=== PATIENT | male | born 1995 | race Caucasian/White ===

== ENCOUNTER → 2016-08-28 | Outpatient (CLI) | payer BC ==
[~2016-08-28] MED LIST: CETI10CA PO; PRD20T PO
--- NOTE | 2016-08-31 09:37 | Diagnostic Imaging Report ---
PROCEDURE: CT right wrist without contrast. TECHNIQUE: Multiple contiguous axial images were obtained through the right wrist without the use of intravenous contrast. Sagittal and coronal reformations were then performed. DATE: August 28, 2016. INDICATION: 20-year-old male, right hand pain. Prior history of surgery. COMPARISON: Right wrist radiographs December 13, 2013. CT right wrist March 08, 2014. FINDINGS: There is a fixation screw within the scaphoid. The screw appears entirely intraosseous in location and is intact. There is complete osseous bridging across the previously noted fracture of the scaphoid on comparison radiograph of December 13, 2013. There is a very small osseous protuberance of the very proximal aspect of the scaphoid adjacent to the proximal aspect of the fixation screw perhaps best illustrated on sagittal image 60. This extends beyond the expected cortical margin of bone by roughly 0.6 mm. There is no evidence of avascular necrosis of the scaphoid. There is a small well-corticated ossification measuring approximately 2.4 x 2.2 x 3.2 mm in size adjacent to the distal lunate along its radial margin compatible with a chronic etiology. This is present on the comparison exam of March 08, 2014. This may potentially relate to the sequela of prior fracture or an accessory ossicle. There is no abnormal widening of the scapholunate or lunotriquetral intervals. There is a normal variant type II lunate facet. There does appear to be negative ulnar variance. There are no degenerative changes at the distal radial ulnar joint. The bone mineralization of the lunate is unremarkable. There is no identified acute fracture. There are limitations for assessment of the muscles and tendons on CT. No obvious abnormality of the muscles or tendons is identified. IMPRESSION: 1. Intact fixation screw within the scaphoid. Interval complete osseous bridging of the previously noted scaphoid fracture on comparison wrist radiographs of December 13, 2013. No evidence of avascular necrosis. Very minimal osseous protuberance adjacent to the proximal aspect of the fixation screw measuring 0.6 mm. 2. Small well-corticated ossification adjacent to the distal aspect of the radial margin of the lunate which is present previously and most likely relates to sequela of prior injury or accessory ossicle. 3. Apparent negative ulnar variance. Dictated by: Dictated on workstation # [id number]
== END ==
LOC: RAD 14:28
PROVIDERS: ATTEND Orthopaedic Surgery Hand Surgery
DX: M79.641 Pain in right hand (principal)
CPT/HCPCS: 73200

== ENCOUNTER 2017-01-04 20:54 | Outpatient (CLI) | payer BC, OTHER | END 2017-01-05 06:52 | disposition home or self-care (01) | LOC: SLEEP 20:54 | PROVIDERS: ATTEND Nurse Practitioner Family | DX: G47.10 Hypersomnia, unspecified (principal); R06.83 Snoring | CPT/HCPCS: 95811 ==

== ENCOUNTER 2017-06-24 16:57 | Emergency (ER) | payer OTHER ==
[~2017-06-24] VITALS: Ht 175.3 cm; Wt 106.6 kg
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
[2017-06-24] MEDS ORDERED: fentaNYL INJECTION 100 MCG/2 ML AMP IVP ONE ×3 (17:15→19:15)
[2017-06-24 17:17] LABS: HEMOGLOBIN 15.9 G/DL (13.3-17.7); MEAN PLATELET VOLUME 8.9 FL (7.4-10.4); RED BLOOD COUNT 5.68 10^6/uL (4.35-5.85); RED CELL DISTRIBUTION WIDTH 13.6 % (10.0-14.5); WHITE BLOOD COUNT 9.6 10^3/uL (4.3-11.0)
[2017-06-24] MEDS ORDERED: NS 100 ML (IVPB) BAG IV ONE (17:30)
[2017-06-24] MEDS ORDERED: IOHEXOL 350 MG/ML 100 ML (OMNIPAQUE 350) VIAL IV ONE (17:30)
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
[2017-06-24 17:38] LABS: ALANINE AMINOTRANSFERASE 52 U/L (0-55); ALBUMIN 4.3 GM/DL (3.2-4.5); ALKALINE PHOSPHATASE 57 U/L (40-136); BILIRUBIN,DIRECT 0.1 MG/DL (0.0-0.3); BILIRUBIN,INDIRECT 0.3 MG/DL; BILIRUBIN,TOTAL 0.4 MG/DL (0.1-1.0); BUN/CREATININE RATIO 14; CALCIUM 9.6 MG/DL (8.5-10.1); CARBON DIOXIDE 21 MMOL/L (21-32); CHLORIDE 102 MMOL/L (98-107); CREATININE SERUM 0.78 MG/DL (0.60-1.30); GFR ESTIMATED > 60; GLUCOSE 107 MG/DL (70-105); POTASSIUM 3.5 MMOL/L (3.6-5.0); SODIUM 138 MMOL/L (135-145); TOTAL PROTEIN 7.9 GM/DL (6.4-8.2)
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
[2017-06-24] MEDS ORDERED: HYDR-757 PO (18:03)
[2017-06-24 18:23] LABS: BILIRUBIN,URINE NEGATIVE (NEGATIVE); CLARITY,URINE CLEAR; COLOR,URINE YELLOW; GLUCOSE, URINE (UA) NEGATIVE (NEGATIVE); KETONES,URINE NEGATIVE (NEGATIVE); LEUKOCYTE ESTERASE ,URINE NEGATIVE (NEGATIVE); NITRITE,URINE NEGATIVE (NEGATIVE); PH,URINE 7 (5-9); PROTEIN,URINE 1+ (NEGATIVE); UROBILINOGEN,URINE NORMAL (NORMAL)
[2017-06-24 18:31] LABS: SQUAMOUS EPITHELIAL CELL,UR RARE /HPF
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
[2017-06-24 19:11] VITALS: BP 165/105
== END 2017-06-24 19:11 | disposition home or self-care (01) ==
LOC: EDUNIT# 16:57 → ER 16:58
DX: S06.0X9A Concussion with loss of consciousness of unspecified duration, initial encounter (principal); S16.1XXA Strain of muscle, fascia and tendon at neck level, initial encounter; S39.012A Strain of muscle, fascia and tendon of lower back, initial encounter; J45.909 Unspecified asthma, uncomplicated; V43.52XA Car driver injured in collision with other type car in traffic accident, initial encounter
CPT/HCPCS: 36415; 70450; 71045; 71260; 72125; 72131; 73030; 74177; 80048; 80076; 80320; 81000; 85027; 86850; 86900; 86901; 93041; 96374; 96376

== ENCOUNTER 2018-07-07 13:59 | Outpatient (RCR) | payer OTHER ==
[~2018-07-07 13:59] MED LIST changes: +HYDR-4226 PO
== END 2018-07-07 14:26 | disposition home or self-care (01) ==
PROVIDERS: ATTEND Nurse Practitioner
DX: M76.62 Achilles tendinitis, left leg (principal)

== ENCOUNTER → 2018-11-21 | Outpatient (CLI) | payer OTHER ==
[2018-11-21 10:26] LABS: BASOPHILS # (AUTO) 0.1 10^3/uL (0.0-0.1); BASOPHILS % (AUTO) 1 % (0-10); EOSINOPHILS # (AUTO) 0.2 10^3/uL (0.0-0.3); EOSINOPHILS % (AUTO) 2 % (0-10); HEMATOCRIT 42 % (40-54); HEMOGLOBIN 14.7 G/DL (13.3-17.7); LYMPHOCYTES % (AUTO) 39 % (12-44); MEAN CORPUSCULAR HEMOGLOBIN 28 PG (25-34); MEAN CORPUSCULAR HGB CONC 35 G/DL (32-36); MEAN CORPUSCULAR VOLUME 80 FL (80-99); MEAN PLATELET VOLUME 9.1 FL (7.4-10.4); MONOCYTES # (AUTO) 0.7 X 10^3 (0.0-1.0); MONOCYTES % (AUTO) 9 % (0-12); NEUTROPHILS # (AUTO) 3.7 X 10^3 (1.8-7.8); NEUTROPHILS % (AUTO) 49 % (42-75); PLATELET COUNT 221 10^3/uL (130-400); RED CELL DISTRIBUTION WIDTH 13.6 % (10.0-14.5); WHITE BLOOD COUNT 7.6 10^3/uL (4.3-11.0)
[2018-11-21 10:45] LABS: ALANINE AMINOTRANSFERASE 53 U/L (0-55); ALBUMIN 4.3 GM/DL (3.2-4.5); ALKALINE PHOSPHATASE 56 U/L (40-136); BILIRUBIN,TOTAL 0.5 MG/DL (0.1-1.0); BUN/CREATININE RATIO 16; CALCIUM 9.1 MG/DL (8.5-10.1); CARBON DIOXIDE 22 MMOL/L (21-32); CHLORIDE 105 MMOL/L (98-107); CHOLESTEROL 154 MG/DL (< 200); CREATININE SERUM 0.76 MG/DL (0.60-1.30); GFR ESTIMATED > 60; GLUCOSE 127 MG/DL (70-105); HDL CHOLESTEROL 28 MG/DL (40-60); POTASSIUM 3.9 MMOL/L (3.6-5.0); SODIUM 136 MMOL/L (135-145); TOTAL PROTEIN 7.2 GM/DL (6.4-8.2); TRIGLYCERIDES 157 MG/DL (<150); VLDL CHOLESTEROL 31 MG/DL (5-40)
== END ==
LOC: LAB 10:03
PROVIDERS: ATTEND Nurse Practitioner
DX: Z00.00 Encounter for general adult medical examination without abnormal findings (principal); J45.909 Unspecified asthma, uncomplicated; G47.33 Obstructive sleep apnea (adult) (pediatric)
CPT/HCPCS: 36415; 80053; 80061; 84443; 85025

== ENCOUNTER → 2019-05-29 | Outpatient (CLI) | payer OTHER ==
--- NOTE | 2019-05-29 13:23 | Diagnostic Imaging Report ---
INDICATION: Fall with pain in the left hip and back. TIME OF EXAM: 01:08 p.m. FINDINGS: Three views of lumbar spine were obtained. Curvature alignment is normal. Vertebral body heights and disc spaces are well-maintained. No fractures are seen. IMPRESSION: No acute bony abnormality is detected. Dictated by: Dictated on workstation # [id number]
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
== END ==
LOC: RAD 12:41
PROVIDERS: ATTEND Nurse Practitioner
DX: M54.5 Low back pain (principal); M25.552 Pain in left hip; W19.XXXA Unspecified fall, initial encounter; Y93.67 Activity, basketball
CPT/HCPCS: 72100

== ENCOUNTER → 2019-06-23 | Outpatient (CLI) | payer OTHER ==
[~2019-06-23] VITALS: Ht 175.3 cm; Wt 129.5 kg
[~2019-06-23] MED LIST changes: +GADOBUTROL 7.5 MMOL/7.5 ML (GADAVIST) VIAL IV ONE; +IOHEXOL 300 MG/ML 50 ML (OMNIPAQUE 300) VIAL IV ONE
--- NOTE | 2019-06-23 14:19 | Diagnostic Imaging Report ---
INDICATION: Left hip pain. FINDINGS: Patient was brought to the procedure room, placed on table in the supine position. Skin of the left hip was prepped and draped in the usual sterile fashion. A small amount of 1% lidocaine was utilized for local anesthesia. 20-gauge needle was advanced into the left hip and placed with its tip at the femoral head and neck junction laterally. A 15 mL solution of iodinated contrast, normal saline, and gadolinium was injected under fluoroscopic observation. Needle was withdrawn and hemostasis was obtained. Patient tolerated the procedure well and was sent to MRI in satisfactory condition. Total of 60 seconds of fluoroscopic time was utilized. IMPRESSION: Successful left hip injection of gadolinium contrast solution, using fluoroscopy. Dictated by: Dictated on workstation # [id number]
--- NOTE | 2019-06-23 16:02 | Diagnostic Imaging Report ---
EXAMINATION: Magnetic resonance imaging of the pelvis and left hip with intra-articular contrast. DATE: June 23, 2019. COMPARISON: Left hip arthrogram June 23, 2019. INDICATION: 23-year-old male, left hip pain. TECHNIQUE: Magnetic Resonance Imaging sequences were performed of the pelvis and left hip following the intra-articular administration of contrast. TENDONS AND MUSCLES: The gluteus millicent muscles and their origins and insertions are intact bilaterally. The tendons and muscles of the greater trochanter - gluteus minimus, piriformis and gluteus medius - are intact bilaterally. Both common hamstring attachments on the ischial tuberosities are intact and the extensor muscles of the thigh are intact. The visualized portions of the flexors and adductor muscles of the thigh and their attachments on the pelvis and hips are intact. Both iliopsoas and iliacus muscles are intact. The bilateral iliopsoas tendons are intact. HIPS AND SACROILIAC JOINTS: The contours of the femoral heads and acetabuli are smooth and symmetric. There is no identified left hip labral tear. There is no paralabral cyst. The articular cartilage appears grossly intact. There is no fluid-filled right hip labral tear. No pronounced joint space loss of the right hip. There is no right hip joint effusion. The sacroiliac joints are unremarkable. LUMBAR SPINE: The visible portions of the lumbar spine are unremarkable on limited assessment. BONE: The bones all have normal configuration. The bone marrow signal is within normal limits. Specifically, negative for fracture, osteomyelitis, osteonecrosis, or marrow replacing process. BURSAE AND SOFT TISSUES: The bursae and soft tissues surrounding the pelvis and hips are within normal limits. IMPRESSION: 1. Negative for labral tear. Unremarkable appearance of both hip joints. 2. Intact muscles and tendons. 3. No acute fracture, bone contusion or evidence of osteonecrosis. 4. Unremarkable MRI of the pelvis and left hip. Dictated by: Dictated on workstation # [id number]
== END ==
LOC: RAD 12:12
PROVIDERS: ATTEND Nurse Practitioner
DX: M24.152 Other articular cartilage disorders, left hip (principal); M25.552 Pain in left hip
CPT/HCPCS: 27093; 73525; 73722

== ENCOUNTER → 2019-10-11 | Outpatient (CLI) | payer OTHER ==
[~2019-10-11] MED LIST changes: -GADOBUTROL 7.5 MMOL/7.5 ML (GADAVIST) VIAL IV ONE; -IOHEXOL 300 MG/ML 50 ML (OMNIPAQUE 300) VIAL IV ONE
--- NOTE | 2019-10-11 09:47 | Diagnostic Imaging Report ---
PROCEDURE: MRI lumbar spine. TECHNIQUE: Multiplanar, multisequence MRI of the lumbar spine was performed without contrast. INDICATION: Chronic back pain. COMPARISON: There are no prior MRI examinations available for comparison. The plain film examination of the lumbar spine performed on 05/29/2019 failed to show any sign of an acute abnormality. FINDINGS: The T2 parasagittal images of this exam show the vertebral body heights and alignment to be generally within normal limits. The intervertebral spaces are fairly well-maintained although there is desiccation of the disc at L4-L5. Furthermore, at this level, there is a disc bulge eccentric to the right. The disc compresses the right ventral aspect of the thecal sac and narrows the AP diameter to 9.0 mm. There is also mild neuroforaminal narrowing bilaterally at this level. The remainder of the lumbar spine is unremarkable for spinal stenosis or nerve root encroachment. There is no abnormal signal arising from the cord or the vertebral bodies to indicate an acute abnormality. There is no sign of a paraspinal mass. IMPRESSION: 1. There is degenerative disc disease at L4-L5. There is borderline central stenosis at this level with mild narrowing of the neural foramen bilaterally. 2. The remainder of the lumbar spine is unremarkable for spinal stenosis or nerve root encroachment. 3. There is no sign of an acute bony abnormality or of a cord lesion. Dictated by: Dictated on workstation # [id number]
== END ==
LOC: RAD 08:33
PROVIDERS: ATTEND Nurse Practitioner
DX: M54.16 Radiculopathy, lumbar region (principal); M24.152 Other articular cartilage disorders, left hip; M48.061 Spinal stenosis, lumbar region without neurogenic claudication; M51.36 Other intervertebral disc degeneration, lumbar region
CPT/HCPCS: 72148

== ENCOUNTER 2020-01-29 08:49 | Emergency (ER) | payer OTHER ==
[~2020-01-29] VITALS: Ht 175.2 cm; Wt 129.7 kg
[2020-01-29] MEDS ORDERED: FAMOTIDINE 20MG/2ML IV (PEPCID) IV STA (08:54)
[2020-01-29] MEDS ORDERED: ANTACID SUSP 30 ML UDC (MYLANTA) PO ONE (09:00)
[2020-01-29] MEDS ORDERED: LIDOCAINE 2% VISCOUS 15 ML UDC PO ONE (09:00)
[2020-01-29] MEDS ORDERED: ASPIRIN 81 MG CHEW (CHILDREN'S ASA) PO ONE (09:00)
[2020-01-29 09:12] LABS: BASOPHILS % (AUTO) 1 % (0-10); EOSINOPHILS # (AUTO) 0.3 10^3/uL (0.0-0.3); EOSINOPHILS % (AUTO) 4 % (0-10); HEMATOCRIT 45 % (40-54); HEMOGLOBIN 16.1 G/DL (13.3-17.7); LYMPHOCYTES # (AUTO) 2.3 X 10^3 (1.0-4.0); LYMPHOCYTES % (AUTO) 33 % (12-44); MEAN CORPUSCULAR HEMOGLOBIN 28 PG (25-34); MEAN CORPUSCULAR HGB CONC 36 G/DL (32-36); MEAN CORPUSCULAR VOLUME 79 FL (80-99); MONOCYTES # (AUTO) 0.5 X 10^3 (0.0-1.0); MONOCYTES % (AUTO) 7 % (0-12); NEUTROPHILS # (AUTO) 3.9 X 10^3 (1.8-7.8); NEUTROPHILS % (AUTO) 56 % (42-75); PLATELET COUNT 237 10^3/uL (130-400); RED CELL DISTRIBUTION WIDTH 13.3 % (10.0-14.5); WHITE BLOOD COUNT 6.9 10^3/uL (4.3-11.0)
--- NOTE | 2020-01-29 09:18 | ED Chest Pain ---
General Stated Complaint: CHEST PAIN;ARM PAIN Source: patient Exam Limitations: no limitations (RUBY MCCLURE MED STUDENT) History of Present Illness Date Seen by Provider: Jan 29, 2020 Time Seen by Provider: 08:50 Initial Comments Aydin Tena is a 24 year old male seen today due to L sided chest and arm pain. He reports that he has had this pain intermittently for several months usually lasting for around 10 minutes and going away on its own, but today it has lasted more than an hour. It is not brought on by exertion or any other aggravating factor he is aware of, and he never takes any medication for it. The pain begins on the L side of his chest and radiates into his shoulder and at times around his side to his back. The pain is worsened by any movement of his L arm, and chest pain can be reproduced by palpation. Reports having some SOB with the pain, he has a history of asthma. Timing/Duration: 1 hour Severity/Quality: mild, stabbing Location: central, shoulder Radiation: shoulders Activities at Onset: none (RUBY MCCLURE STUDENT) Initial Comments Patient also endorses a history of anxiety. Patient has not tried anything for it. He has not had this worked up anywhere else yet. His pain is been going on intermittently for the past several months. (LUZ ELENA GRAVES) Allergies and Home Medications Allergies Coded Allergies: Cephalosporins (Unverified Allergy, Severe, RASH, 12/19/12) Skin sloughing Penicillins (Unverified Allergy, Intermediate, RASH, 12/19/12) Sulfa (Sulfonamide Antibiotics) (Verified Allergy, Intermediate, 06/15/14) Home Medications Cetirizine Hcl 10 Mg Capsule, 10 MG PO HS, (Reported) Hydrocodone/Acetaminophen 1 Each Tablet, 1 EACH PO Q4H Prescribed by: JOSE NAIK on 06/24/17 180 Omeprazole 20 Mg Capsule.dr, 20 MG PO BID Prescribed by: LUZ ELENA GRAVES on 01/29/20 1301 Ondansetron 4 Mg Tab.rapdis, 4 MG PO Q6H PRN for NAUSEA/VOMITING Prescribed by: LUZ ELENA GRAVES on 01/29/20 1301 Prednisone 20 Mg Tab, 40 MG PO DAILY Prescribed by: JOSE NAIK on 06/06/152040 Sucralfate 1 Gm Tablet, 1 GM PO QIDACHS Prescribed by: LUZ ELENA GRAVES on 01/29/20 1301 Patient Home Medication List Home Medication List Reviewed: Yes (LUZ ELENA GRAVES) Review of Systems Review of Systems Constitutional: No chills, No dizziness, No fever EENTM: No Nose Congestion, No Throat Pain Respiratory: Denies Cough; Shortness of Air Cardiovascular: Chest Pain; Denies Irregular Heart Rate; Lightheadedness, Palpitations (occasional fluttering sensation) Gastrointestinal: Denies Abdominal Pain; Nausea; Denies Vomiting Psychiatric/Neurological: Numbness (bilateral hands), Tingling (bilateral hands) (RUBY MCCLURE) All Other Systems Reviewed Negative Unless Noted: Yes (LUZ ELENA GRAVES) Past Xcjdzad-Yedcun-Kqudfk Hx Patient Social History Recent Foreign Travel: No Contact w/Someone Who Travel: No (RUBY MCCLURE) Alcohol Use: Denies Use Recreational Drug Use: No Smoking Status: Never a Smoker (LUZ ELENA GRAVES) Immunizations Up To Date Tetanus Booster (TDap): Less than 5yrs Date of Influenza Vaccine: Mar 10, 2017 (RUBY MCCLURE) Seasonal Allergies Seasonal Allergies: Yes (RUBY MCCLURE) Past Medical History Surgeries: Yes Orthopedic Respiratory: Yes Asthma Cardiac: No Neurological: Yes (concussion) Reproductive Disorders: No Sexually Transmitted Disease: No HIV/AIDS: No Genitourinary: No Gastrointestinal: No Musculoskeletal: No Endocrine: No Cancer: No Psychosocial: No Integumentary: No Blood Disorders: No Adverse Reaction/Blood Tranf: No (RUBY MCCLURE) Physical Exam Vital Signs Vital Signs - First Documented 01/29/20 08:50 Temp 36.3 Pulse 93 Resp 18 B/P (MAP) 152/98 (116) Pulse Ox 99 O2 Delivery Room Air (LUZ ELENA GRAVES) Vital Signs Capillary Refill : (RUBY MCCLURE) Height, Weight, BMI Height: 5'9" Weight: 235lbs. oz. 106.753882ul; 42.14 BMI Method:Stated General Appearance: No Apparent Distress, Anxious HEENT: PERRL/EOMI; No Scleral Icterus (L), No Scleral Icterus (R) Respiratory: No Chest Non Tender (tenderness to palpation at reported location of chest pain, on L at level of 4th rib at midclavicular line); Lungs Clear, Normal Breath Sounds, No Accessory Muscle Use, No Respiratory Distress Cardiovascular: Regular Rate, Rhythm, No Edema, No Gallop, No Murmur, Normal Peripheral Pulses Neurologic/Psychiatric: Alert, Oriented x3, Normal Mood/Affect Skin: Normal Color, Warm/Dry (RUBY MCCLURE MED STUDENT) Extremity: Normal Capillary Refill, Normal Inspection, No Pedal Edema (LUZ ELENA GRAVES) Progress/Results/Core Measures Results/Orders Lab Results Laboratory Tests Test 01/29/20 09:00 01/29/20 10:30 01/29/20 12:00 Range/Units White Blood Count 6.9 4.3-11.0 10^3/uL Red Blood Count 5.71 4.35-5.85 10^6/uL Hemoglobin 16.1 13.3-17.7 G/DL Hematocrit 45 40-54 % Mean Corpuscular Volume 79 L 80-99 FL Mean Corpuscular Hemoglobin 28 25-34 PG Mean Corpuscular Hemoglobin Concent 36 32-36 G/DL Red Cell Distribution Width 13.3 10.0-14.5 % Platelet Count 237 130-400 10^3/uL Mean Platelet Volume 9.0 7.4-10.4 FL Neutrophils (%) (Auto) 56 42-75 % Lymphocytes (%) (Auto) 33 12-44 % Monocytes (%) (Auto) 7 0-12 % Eosinophils (%) (Auto) 4 0-10 % Basophils (%) (Auto) 1 0-10 % Neutrophils # (Auto) 3.9 1.8-7.8 X 10^3 Lymphocytes # (Auto) 2.3 1.0-4.0 X 10^3 Monocytes # (Auto) 0.5 0.0-1.0 X 10^3 Eosinophils # (Auto) 0.3 0.0-0.3 10^3/uL Basophils # (Auto) 0.0 0.0-0.1 10^3/uL Prothrombin Time 12.9 12.2-14.7 SEC INR Comment 0.9 0.8-1.4 Activated Partial Thromboplast Time 28 24-35 SEC D-Dimer 0.24 0.00-0.49 UG/ML Sodium Level 136 135-145 MMOL/L Potassium Level 3.8 3.6-5.0 MMOL/L Chloride Level 102 98-107 MMOL/L Carbon Dioxide Level 22 21-32 MMOL/L Anion Gap 12 5-14 MMOL/L Blood Urea Nitrogen 9 7-18 MG/DL Creatinine 0.88 0.60-1.30 MG/DL Estimat Glomerular Filtration Rate > 60 BUN/Creatinine Ratio 10 Glucose Level 190 H 70-105 MG/DL Calcium Level 9.4 8.5-10.1 MG/DL Corrected Calcium 8.5-10.1 MG/DL Magnesium Level 1.9 1.6-2.4 MG/DL Total Bilirubin 0.5 0.1-1.0 MG/DL Aspartate Amino Transf (AST/SGOT) 29 5-34 U/L Alanine Aminotransferase (ALT/SGPT) 50 0-55 U/L Alkaline Phosphatase 66 40-136 U/L Myoglobin 32.0 10.0-92.0 NG/ML Troponin I < 0.028 < 0.028 <0.028 NG/ML Total Protein 8.5 H 6.4-8.2 GM/DL Albumin 4.6 H 3.2-4.5 GM/DL Lipase 35 8-78 U/L Urine Color YELLOW Urine Clarity CLEAR Urine pH 6.5 5-9 Urine Specific [place] 1.010 L 1.016-1.022 Urine Protein NEGATIVE NEGATIVE Urine Glucose (UA) 3+ H NEGATIVE Urine Ketones NEGATIVE NEGATIVE Urine Nitrite NEGATIVE NEGATIVE Urine Bilirubin NEGATIVE NEGATIVE Urine Urobilinogen 0.2 < = 1.0 MG/DL Urine Leukocyte Esterase NEGATIVE NEGATIVE Urine RBC (Auto) NEGATIVE NEGATIVE Urine RBC NONE /HPF Urine WBC NONE /HPF Urine Crystals NONE /LPF Urine Bacteria NEGATIVE /HPF Urine Casts NONE /LPF Urine Mucus NEGATIVE /LPF Urine Culture Indicated NO Urine Opiates Screen NEGATIVE NEGATIVE Urine Oxycodone Screen NEGATIVE NEGATIVE Urine Methadone Screen NEGATIVE NEGATIVE Urine Propoxyphene Screen NEGATIVE NEGATIVE Urine Barbiturates Screen NEGATIVE NEGATIVE Ur Tricyclic Antidepressants Screen NEGATIVE NEGATIVE Urine Phencyclidine Screen NEGATIVE NEGATIVE Urine Amphetamines Screen NEGATIVE NEGATIVE Urine Methamphetamines Screen NEGATIVE NEGATIVE Urine Benzodiazepines Screen NEGATIVE NEGATIVE Urine Cocaine Screen NEGATIVE NEGATIVE Urine Cannabinoids Screen NEGATIVE NEGATIVE (LUZ ELENA GRAVES) My Orders Orders - LUZ ELENA GRAVES Cbc With Automated Diff (01/29/20 08:54) Magnesium (01/29/20 08:54) Chest 1 View, Ap/Pa Only (01/29/20 08:54) Ekg Tracing (01/29/20 08:54) Comprehensive Metabolic Panel (01/29/20 08:54) Myoglobin Serum (01/29/20 08:54) Protime With Inr (01/29/20 08:54) Partial Thromboplastin Time (01/29/20 08:54) O2 (01/29/20 08:54) Monitor-Rhythm Ecg Trace Only (01/29/20 08:54) Lipid Panel (01/30/20 06:00) Ed Iv/Invasive Line Start (01/29/20 08:54) Lipase (01/29/20 08:54) Fibrin Degradation Products (01/29/20 08:54) Troponin I (01/29/20 08:54) Aspirin Chewable Tablet (Baby Aspirin Ch (01/29/20 09:00) Lidocaine 2% Viscous 15 Ml (Xylocaine Vi (01/29/20 09:00) Antacid Suspension (Mylanta Suspension (01/29/20 09:00) Famotidine Injection (Pepcid Injection) (01/29/20 08:54) Ua Culture If Indicated (01/29/20 09:55) Drug Screen Stat (Urine) (01/29/20 09:55) Albuterol/Ipra Inhalation Soln (Duoneb I (01/29/20 12:15) Svn Small Volume Nebulizer (01/29/20 12:04) Troponin I (01/29/20 12:04) Ekg Tracing (01/29/20 12:07) (LUZ ELENA GRAVES) Medications Given in ED Current Medications Medications Dose Ordered Sig/Luz Marina Route Start Time Stop Time Status Last Admin Dose Admin Al Hydrox/Mg Hydrox/Simethicone 30 ml ONCE ONCE PO 01/29/20 09:00 01/29/20 09:01 DC 01/29/20 09:18 30 ML Albuterol/ Ipratropium 3 ml ONCE ONCE INH 01/29/20 12:15 01/29/20 12:16 DC 01/29/20 12:11 3 ML Aspirin 324 mg ONCE ONCE PO 01/29/20 09:00 01/29/20 09:01 DC 01/29/20 09:11 324 MG Lidocaine HCl 15 ml ONCE ONCE PO 01/29/20 09:00 01/29/20 09:01 DC 01/29/20 09:18 15 ML (LUZ ELENA GRAVES) Vital Signs/I&O 01/29/20 08:50 Temp 36.3 Pulse 93 Resp 18 B/P (MAP) 152/98 (116) Pulse Ox 99 O2 Delivery Room Air (LUZ ELENA GRAVES) Progress Progress Note #1: Time: 10:31 Progress Note Patient was given some aspirin and a GI cocktail. We'll get some labs. We'll consider myocarditis pericarditis, bronchospasm pneumonia as well as mildly does not have any fevers cough or chills. Musculoskeletal appears to be high on the list as well as GERD and anxiety. Pulmonary embolism seems much less likely since he has no signs of DVT has been intermittent and going on for several months and he has no shortness of air, hypoxia, hemoptysis, cough. 97% oxygen sats on room air and 85 heart rate. She Well score for pulmonary embolism. 0.0 points. Low risk group: 1.3% chance of PE in an ED population. I attest that I saw this patient alongside the medical student and agree with his documented history, physical exam and review of systems except as otherwise noted. Progress Note #2: Time: 12:05 Progress Note patient's feeling significant improvement from a 7 out of 10 down to a 5 out of 10 pain after the GI cocktail. He does have a history of GERD. We suspect he might have some diabetes also considering his glucose in the urine and blood sugar 190. We have encouraged him to follow-up with primary care for this. Gastritis/musculoskeletal very good possibility. We'll give him a breathing treatment to rule out an occult bronchospasm. We are going to check at delta troponin since his chest pain started just before 8:00 which would be 4 hours after his pain started. We will then encourage him to follow-up with cardiology outpatient in the clinic. Patient's in agreement with this plan. Progress Note #3: Time: 13:12 Progress Note patient did not notice any significant improvement after breathing treatment and has no wheezing or adventitious lung sounds. His pain does get a little worse on deep inspiration and there may be some pleuritic component. (LUZ ELENA GRAVES) Initial ECG Impression Date: Jan 29, 2020 Initial ECG Impression Time: 08:53 Initial ECG Rate: 92 Initial ECG Rhythm: Normal Sinus Initial ECG Intervals: Normal Initial ECG Impression: Normal Comment normal sinus rhythm without clinically relevant ST elevation or depression. EKG : EKG Time: 12:15 Rate: 79 Rhythm: Normal Sinus Intervals: Normal ECG Comparisson: Unchanged ECG Impression: Normal Comment normal sinus rhythm without clinically relevant ST elevation or depression. (LUZ ELENA GRAVES) Diagnostic Imaging Diagonstic Imaging: Xray Plain Films/CT/US/NM/MRI: chest Comments NAME: AYDIN TENA [facility] REC#: [id number] PT STATUS: REG ER : 1995 PHYSICIAN: LUZ ELENA GRAVES MD ADMIT DATE: 01/29/20/ER Draft Date of Exam:01/29/20 CHEST 1 VIEW, AP/PA ONLY Indication: Chest pain. Frontal chest obtained at 9:23 a.m. and compared to 06/24/2017. Heart and mediastinal silhouette are normal in appearance. The lungs are clear. There is no pneumothorax or pleural fluid. Impression: Negative chest. Dictated on workstation # [id number] Dict: 01/29/20 0951 Trans: 01/29/20 0952 CV [id number] Interpreted by: ALEXA DUPONT MD Electronically signed by: Reviewed: Reviewed by Me (LUZ ELENA GRAVES) Departure Communication (PCP) 1300: discussed the case with Sharron Tobin and she says she will reschedule his appointment since he just had labs and workup today to Wednesday at 1020, 01/31/20. She says his fasting blood sugar was a little elevated 6 months ago at 129 so she will re-pursue this. (LUZ ELENA GRAVES) Impression Primary Impression: Chest pain Qualified Codes: R07.9 - Chest pain, unspecified Additional Impression: Gastritis Qualified Codes: K29.00 - Acute gastritis without bleeding Disposition: HOME, SELF-CARE Condition: Stable Departure-Patient Inst. Decision time for Depature: 12:50 (LUZ ELENA GRAVES) Referrals: GAIL TORRES MD (PCP) Primary Care Physician DAGMAR KRAFT MD FACP [facility] ELIJAH PENNY MD Patient Instructions: Gastritis (DC), Chest Pain (DC) Add. Discharge Instructions: I suspect that you're chest pain may be related to gastritis. I also suspect you may have diabetes or prediabetes. please follow up with Sharron Tobin at your new appointment. Sharron Tobin: 01/31/20 at 10:20 AM. You may also call Dr. Kraft, cardiology for a follow-up clinic appointment in the next 1-2 weeks. You may try Tums, Rolaids, Maalox if you have pain again. If this does not take care of it then you may return to the ER. I want you to start a medicine called omeprazole 20 mg twice a day for the next month to help reduce the acid your stomach produces. I also want you to start Carafate. Take it half an hour before you eat and at bedtime for a total of 4 times a day. Do this for 2 weeks. if you get nauseated you can take Zofran 1 tablet under the tongue every 6 hours as necessary. Scripts Omeprazole (Omeprazole) 20 Mg Capsule.dr 20 MG PO BID for 30 Days, #60 CAP 0 Refills Prov: LUZ ELENA GRAVES 01/29/20 Sucralfate (Carafate) 1 Gm Tablet 1 GM PO QIDACHS for 14 Days, #56 TAB 0 Refills Prov: LUZ ELENA GRAVES 01/29/20 Ondansetron (Ondansetron Odt) 4 Mg Tab.rapdis 4 MG PO Q6H PRN for NAUSEA/VOMITING, #8 TAB 0 Refills Prov: LUZ ELENA GRAVES 01/29/20 Copy Copies To 1: DAGMAR KRAFT MD FACP [facility] RUBY MCCLURE MED STUDENT Jan 29, 2020 09:18 LUZ ELENA GRAVES Jan 29, 2020 10:33
[2020-01-29 09:27] LABS: INR 0.9 (0.8-1.4); PROTHROMBIN TIME PATIENT 12.9 SEC (12.2-14.7)
[2020-01-29 09:36] LABS: ALANINE AMINOTRANSFERASE 50 U/L (0-55); ALBUMIN 4.6 GM/DL (3.2-4.5); ALKALINE PHOSPHATASE 66 U/L (40-136); BILIRUBIN,TOTAL 0.5 MG/DL (0.1-1.0); BUN/CREATININE RATIO 10; CALCIUM 9.4 MG/DL (8.5-10.1); CARBON DIOXIDE 22 MMOL/L (21-32); CHLORIDE 102 MMOL/L (98-107); CREATININE SERUM 0.88 MG/DL (0.60-1.30); GFR ESTIMATED > 60; GLUCOSE 190 MG/DL (70-105); LIPASE 35 U/L (8-78); MAGNESIUM 1.9 MG/DL (1.6-2.4); POTASSIUM 3.8 MMOL/L (3.6-5.0); SODIUM 136 MMOL/L (135-145); TOTAL PROTEIN 8.5 GM/DL (6.4-8.2)
--- NOTE | 2020-01-29 09:52 | Diagnostic Imaging Report ---
Indication: Chest pain. Frontal chest obtained at 9:23 a.m. and compared to 06/24/2017. Heart and mediastinal silhouette are normal in appearance. The lungs are clear. There is no pneumothorax or pleural fluid. Impression: Negative chest. Dictated by: Dictated on workstation # [id number]
[2020-01-29 10:37] LABS: BILIRUBIN,URINE NEGATIVE (NEGATIVE); CLARITY,URINE CLEAR; COLOR,URINE YELLOW; GLUCOSE, URINE (UA) 3+ (NEGATIVE); KETONES,URINE NEGATIVE (NEGATIVE); LEUKOCYTE ESTERASE ,URINE NEGATIVE (NEGATIVE); NITRITE,URINE NEGATIVE (NEGATIVE); PH,URINE 6.5 (5-9); PROTEIN,URINE NEGATIVE (NEGATIVE)
[2020-01-29 10:49] LABS: BACTERIA,URINE NEGATIVE /HPF
[2020-01-29 10:58] LABS: AMPHETAMINE SCREEN, URINE NEGATIVE (NEGATIVE); BARBITURATE SCREEN URINE NEGATIVE (NEGATIVE); BENZODIAZEPINES SCREEN URINE NEGATIVE (NEGATIVE); CANNABINOID SCREEN, URINE NEGATIVE (NEGATIVE); COCAINE SCREEN URINE NEGATIVE (NEGATIVE); METHADONE STAT NEGATIVE (NEGATIVE); METHAMPHETAMINE SCREEN URINE S NEGATIVE (NEGATIVE); OPIATE SCREEN URINE NEGATIVE (NEGATIVE); OXYCODONE STAT NEGATIVE (NEGATIVE); PROPOXYPHENE STAT NEGATIVE (NEGATIVE); TRICYCLIC ANTIDEPRESSANTS SCRE NEGATIVE (NEGATIVE)
[2020-01-29] MEDS ORDERED: RT-ALBUTEROL/IPRATROPIUM 3 ML (DUONEB) VIAL INH ONE (12:15)
[2020-01-29] MEDS ORDERED: ONDA4TAB11 PO (13:01)
[2020-01-29] MEDS ORDERED: SUCR1TAB36 PO (13:01)
[2020-01-29] MEDS ORDERED: OMEP20CA18 PO (13:01)
[2020-01-29 13:10] VITALS: BP 130/65
== END 2020-01-29 13:14 | disposition home or self-care (01) ==
LOC: EDUNIT# 08:49 → ER 08:50
DX: R07.89 Other chest pain (principal); K29.70 Gastritis, unspecified, without bleeding; J45.909 Unspecified asthma, uncomplicated; K21.9 Gastro-esophageal reflux disease without esophagitis; Z88.0 Allergy status to penicillin; Z88.2 Allergy status to sulfonamides; Z88.1 Allergy status to other antibiotic agents; Z79.52 Long term (current) use of systemic steroids; Z87.820 Personal history of traumatic brain injury
CPT/HCPCS: 36415; 71045; 80053; 80306; 81000; 83690; 83735; 83874; 84484; 85025; 85379; 85610; 85730; 93005; 93041

== ENCOUNTER 2020-02-05 15:39 | Outpatient (RCR) | payer OTHER ==
[~2020-02-05 15:39] MED LIST changes: +OMEP20CA18 PO; +ONDA4TAB11 PO; +SUCR1TAB36 PO
== END 2020-02-05 16:19 | disposition home or self-care (01) ==
PROVIDERS: ATTEND Nurse Practitioner
DX: M54.16 Radiculopathy, lumbar region (principal); J45.909 Unspecified asthma, uncomplicated; Z91.09 Other allergy status, other than to drugs and biological substances; Z87.81 Personal history of (healed) traumatic fracture; Z98.890 Other specified postprocedural states
CPT/HCPCS: 97110; G0283

== ENCOUNTER 2020-03-11 14:23 | Emergency (ER) | payer OTHER | END 2020-03-11 14:34 | disposition left against medical advice (07) | LOC: EDUNIT# 14:23 → ER 14:25 | DX: R05 Cough (principal); R06.02 Shortness of breath ==

== ENCOUNTER → 2020-03-12 | Outpatient (CLI) | payer OTHER | LOC: LABNPT 05:37 | PROVIDERS: ATTEND Internal Medicine | DX: R06.02 Shortness of breath (principal); R05 Cough; R53.83 Other fatigue; R51.9 Headache, unspecified; Z20.828 Contact with and (suspected) exposure to other viral communicable diseases | CPT/HCPCS: 87804; U0002; 87635 ==

== ENCOUNTER → 2020-04-01 | Outpatient (CLI) | payer OTHER | LOC: LABNPT 08:57 | PROVIDERS: ATTEND Internal Medicine | DX: Z20.828 Contact with and (suspected) exposure to other viral communicable diseases (principal) | CPT/HCPCS: 87635 ==

== ENCOUNTER 2020-09-06 11:14 | Outpatient (RCR) | payer OTHER | END 2020-10-07 09:45 | disposition home or self-care (01) | PROVIDERS: ATTEND Nurse Practitioner | DX: M76.62 Achilles tendinitis, left leg (principal) ==

== ENCOUNTER 2022-02-06 03:00 | Emergency (ER) | payer OTHER ==
--- NOTE | 2022-02-06 03:35 | ED Chest Pain ---
General Chief Complaint: Chest Wall Stated Complaint: CHEST PAIN - SOA Source: patient Exam Limitations: no limitations History of Present Illness Date Seen by Provider: Feb 06, 2022 Time Seen by Provider: 03:05 Initial Comments Patient to the ER by private conveyance with chief complaint about half an hour prior to arrival he was awoken from sleep with some left-sided chest pain or radiating through to his back. He has no history of abdominal or chest surgeri es nor does he have any history of coronary disease, family coronary disease, hyperlipidemia, diabetes. He does not have hypertension however last week he was noted to have some borderline hypertension and was told to check his blood pressures which she has been doing. He is noted some blood pressures with a systolic yesterday of 1 65-1 70. He thinks this might of coincided with his starting of Concerta by Dr. Liz for his ADHD. He has an appointment this morning at [address] Penyn his primary care provider to discuss starting blood pressure medicines after he called and revealed his high blood pressures. He says his pain is worse with direct palpation of his chest and deep inspiration. He is not having any significant shortness of air although he does have a history of asthma. He denies any wheezing right now. He uses Advair and albuterol as needed. He has not needed it anymore than usual. He does not smoke cigarettes. Allergies and Home Medications Allergies Coded Allergies: Cephalosporins (Unverified Allergy, Severe, RASH, 12/19/12) Skin sloughing Penicillins (Unverified Allergy, Intermediate, RASH, 12/19/12) Sulfa (Sulfonamide Antibiotics) (Verified Allergy, Intermediate, 06/15/14) Patient Home Medication List Home Medication List Reviewed: Yes Cetirizine Hcl (Zyrtec) 10 Mg Capsule, 10 MG PO HS, (Reported) Entered as Reported by: CHEO IBRAHIM on 12/19/12 1624 Hydrocodone/Acetaminophen (Hydrocodone/Acetaminophen 5 MG/325 MG TAB) 1 Each Tablet, 1 EACH PO Q4H Prescribed by: JOSE NAIK on 06/24/17 1803 Omeprazole (Omeprazole) 20 Mg Capsule.dr, 20 MG PO BID Prescribed by: LUZ ELENA GRAVES on 01/29/20 1301 Ondansetron (Ondansetron Odt) 4 Mg Tab.rapdis, 4 MG PO Q6H PRN for NAUSEA/VOMITING Prescribed by: LUZ ELENA GRAVES on 01/29/20 1301 Prednisone (Prednisone) 20 Mg Tab, 40 MG PO DAILY Prescribed by: JOSE NAIK on 06/06/152040 Sucralfate (Carafate) 1 Gm Tablet, 1 GM PO QIDACHS Prescribed by: LUZ ELENA GRAVES on 01/29/20 1301 Review of Systems Review of Systems Constitutional: No chills, No diaphoresis EENTM: No Blurred Vision, No Double Vision Respiratory: Denies Cough, Denies Shortness of Air Cardiovascular: Denies Chest Pain, Denies Edema Gastrointestinal: Denies Constipated, Denies Diarrhea, Denies Nausea Genitourinary: Denies Burning, Denies Discharge Musculoskeletal: No back pain, No joint pain All Other Systems Reviewed Negative Unless Noted: Yes Past Omevaiq-Aufjgr-Yzzfus Hx Patient Social History Tobacco Use?: No Use of E-Cig and/or Vaping dev: No Substance use?: No Immunizations Up To Date Tetanus Booster (TDap): Less than 5yrs Seasonal Allergies Seasonal Allergies: Yes Past Medical History Surgeries: Yes (wisdom teeth) Orthopedic Respiratory: Yes Asthma Cardiac: No Neurological: Yes (concussion) Reproductive Disorders: No Sexually Transmitted Disease: No HIV/AIDS: No Genitourinary: No Gastrointestinal: No Musculoskeletal: No Endocrine: No Cancer: No Psychosocial: No Anxiety Integumentary: No Blood Disorders: No Adverse Reaction/Blood Tranf: No Physical Exam Vital Signs Vital Signs - First Documented 02/06/22 03:12 Temp 36.6 Pulse 99 Resp 22 B/P (MAP) 158/94 (115) Pulse Ox 97 O2 Delivery Room Air Capillary Refill : Height, Weight, BMI Height: 5'9" Weight: 235lbs. oz. 106.326629vi; 42.00 BMI Method:Stated General Appearance: No Apparent Distress, WD/WN, Anxious, Obese HEENT: PERRL/EOMI, Pharynx Normal, Moist Mucous Membranes Neck: Full Range of Motion, Normal Inspection Respiratory: No Accessory Muscle Use, No Respiratory Distress Cardiovascular: Regular Rate, Rhythm, No Edema, Normal Peripheral Pulses Gastrointestinal: Normal Bowel Sounds, Non Tender, Soft Neurologic/Psychiatric: Alert, Oriented x3, No Motor/Sensory Deficits Skin: Warm/Dry Progress/Results/Core Measures Results/Orders Lab Results Laboratory Tests Test 02/06/22 03:50 Range/Units White Blood Count 9.5 4.3-11.0 10^3/uL Red Blood Count 5.51 4.30-5.52 10^6/uL Hemoglobin 15.5 13.3-17.7 g/dL Hematocrit 42 40-54 % Mean Corpuscular Volume 77 L 80-99 fL Mean Corpuscular Hemoglobin 28 25-34 pg Mean Corpuscular Hemoglobin Concent 37 H 32-36 g/dL Red Cell Distribution Width 12.8 10.0-14.5 % Platelet Count 260 130-400 10^3/uL Mean Platelet Volume 9.6 9.0-12.2 fL Immature Granulocyte % (Auto) 1 % Neutrophils (%) (Auto) 51 42-75 % Lymphocytes (%) (Auto) 36 12-44 % Monocytes (%) (Auto) 7 0-12 % Eosinophils (%) (Auto) 4 0-10 % Basophils (%) (Auto) 1 0-10 % Neutrophils # (Auto) 4.9 1.8-7.8 10^3/uL Lymphocytes # (Auto) 3.4 1.0-4.0 10^3/uL Monocytes # (Auto) 0.7 0.0-1.0 10^3/uL Eosinophils # (Auto) 0.3 0.0-0.3 10^3/uL Basophils # (Auto) 0.1 0.0-0.1 10^3/uL Immature Granulocyte # (Auto) 0.1 0.0-0.1 10^3/uL Prothrombin Time 13.3 12.2-14.7 SEC INR Comment 1.0 0.8-1.4 Activated Partial Thromboplast Time 31 24-35 SEC Sodium Level 134 L 135-145 MMOL/L Potassium Level 3.7 3.6-5.0 MMOL/L Chloride Level 102 98-107 MMOL/L Carbon Dioxide Level 14 L 21-32 MMOL/L Anion Gap 18 H 5-14 MMOL/L Blood Urea Nitrogen 10 7-18 MG/DL Creatinine 0.69 0.60-1.30 MG/DL Estimat Glomerular Filtration Rate 132 BUN/Creatinine Ratio 14 Glucose Level 232 H 70-105 MG/DL Calcium Level 9.2 8.5-10.1 MG/DL Corrected Calcium 9.0 8.5-10.1 MG/DL Magnesium Level 1.9 1.6-2.4 MG/DL Total Bilirubin 0.3 0.1-1.0 MG/DL Aspartate Amino Transf (AST/SGOT) 37 H 5-34 U/L Alanine Aminotransferase (ALT/SGPT) 61 H 0-55 U/L Alkaline Phosphatase 68 40-136 U/L Myoglobin 24.0 10.0-92.0 NG/ML Troponin I < 0.028 <0.028 NG/ML Total Protein 8.9 H 6.4-8.2 GM/DL Albumin 4.2 3.2-4.5 GM/DL Lipase 38 8-78 U/L My Orders Orders - LUZ ELENA GRAVES Cbc With Automated Diff (02/06/22 03:32) Magnesium (02/06/22 03:32) Chest 1 View, Ap/Pa Only (02/06/22 03:32) Ekg Tracing (02/06/22 03:32) Comprehensive Metabolic Panel (02/06/22 03:32) Myoglobin Serum (02/06/22 03:32) Protime With Inr (02/06/22 03:32) Partial Thromboplastin Time (02/06/22 03:32) O2 (02/06/22 03:32) Monitor-Rhythm Ecg Trace Only (02/06/22 03:32) Ed Iv/Invasive Line Start (02/06/22 03:32) Lipase (02/06/22 03:32) Troponin I Dane (02/06/22 03:32) Ketorolac Injection (Toradol Injection) (02/06/22 04:15) Medications Given in ED Vital Signs/I&O 02/06/22 02/06/22 02/06/22 03:12 03:12 05:25 Temp 36.6 36.6 Pulse 99 89 Resp 22 16 B/P (MAP) 158/94 (115) 134/73 Pulse Ox 97 98 O2 Delivery Room Air Room Air Room Air Progress Progress Note #1: Time: 04:04 Progress Note Plan to give him some Toradol and see if this helps. Chest wall pain or pleurisy are high on the differential given its worse with deep inspiration. He is not having any signs of asthma. If his first troponin is negative then he can follow-up in the clinic today as he has two-point Swapnil heart score. He does not have tachycardia, hemoptysis, cough or shortness of air. He has 0.0 points on the Wells score for PE. No evidence of pneumothorax. We will get a chest x-ray to rule out a pneumonia or other tumor. Likely this is related to his considerate causing his accelerated hypertension however as we were talking to him and distracting him his blood pressure was 129/86. We explained to him that his anxiety certainly does play a role and he probably does not need to check his blood pressure several times throughout the day as he is only going to get false high numbers. We encouraged him to take his blood pressure cuff with him to Dr. Penny's office to have it checked alongside the wall sphygmomanometer. Progress Note #2: Time: 05:04 Progress Note Patient rates his pain is not much changed after the Toradol. He continues to have a decent blood pressure of 138/67. We will have him follow-up with his primary care provider this morning. Initial ECG Impression Date: Feb 06, 2022 Initial ECG Impression Time: 03:53 Initial ECG Rate: 82 Initial ECG Rhythm: Normal Sinus Initial ECG Intervals: Normal Initial ECG Impression: Normal Initial ECG Comparisson: Unchanged Comment Normal sinus rhythm without clinically relevant ST elevation or depression. There is a insignificant half block ST elevation in lead V1. His EKG does not appear significantly different from 2020. Diagnostic Imaging Diagonstic Imaging: Xray Plain Films/CT/US/NM/MRI: chest Comments No acute cardiopulmonary process. [facility], [place] NAME: OLGA TENA [facility] REC#: [id number] PT STATUS: DEP ER : 1995 PHYSICIAN: LUZ ELENA GRAVES MD ADMIT DATE: 02/06/22/ER Signed Date of Exam:02/06/22 CHEST 1 VIEW, AP/PA ONLY INDICATION: Chest pain COMPARISON: 01/29/2020 TECHNIQUE: Single radiograph chest dated 02/06/2022 FINDINGS: The cardiac silhouette is within normal limits in size. No significant pulmonary vascular congestion. The lungs are clear. No pleural effusion. No pneumothorax. No acute osseous abnormality. IMPRESSION: Stable appearing examination without acute cardiopulmonary abnormality. Dictated by: Dictated on workstation # [id number] Dict: 02/06/22702 Trans: 02/06/22938 [facility] [id number] Interpreted by: RADHA ARORA MD Electronically signed by: RADHA ARORA MD 02/06/22938 Reviewed: Reviewed by Me Departure Impression Primary Impression: Chest wall pain Disposition: HOME, SELF-CARE Condition: Stable Departure-Patient Inst. Decision time for Depature: 05:05 Referrals: ELIJAH PENNY MD (PCP/Family) Primary Care Physician Patient Instructions: Chest Pain That Is Not Caused by the Heart (DC) Add. Discharge Instructions: Keep follow-up appointment with Dr. Penny this morning. Naproxen 500 mg twice a day for 1 to 2 weeks to help reduce the length of time t hat her chest wall hurts. Tylenol 1000 mg every 8 hours needed for pain. All discharge instructions reviewed with patient and/or family. Voiced understanding. Copy Copies To 1: ELIJAH PENNY MD, TITUS J Feb 06, 2022 03:35
[2022-02-06] MEDS ORDERED: KETOROLAC 30 MG/ML VIAL IVP ONE (04:15)
[2022-02-06 04:23] LABS: BASOPHILS # (AUTO) 0.1 10^3/uL (0.0-0.1); BASOPHILS % (AUTO) 1 % (0-10); EOSINOPHILS # (AUTO) 0.3 10^3/uL (0.0-0.3); EOSINOPHILS % (AUTO) 4 % (0-10); HEMATOCRIT 42 % (40-54); HEMOGLOBIN 15.5 g/dL (13.3-17.7); LYMPHOCYTES # (AUTO) 3.4 10^3/uL (1.0-4.0); LYMPHOCYTES % (AUTO) 36 % (12-44); MEAN CORPUSCULAR HEMOGLOBIN 28 pg (25-34); MEAN CORPUSCULAR HGB CONC 37 g/dL (32-36); MEAN CORPUSCULAR VOLUME 77 fL (80-99); MEAN PLATELET VOLUME 9.6 fL (9.0-12.2); MONOCYTES # (AUTO) 0.7 10^3/uL (0.0-1.0); MONOCYTES % (AUTO) 7 % (0-12); NEUTROPHILS # (AUTO) 4.9 10^3/uL (1.8-7.8); NEUTROPHILS % (AUTO) 51 % (42-75); PLATELET COUNT 260 10^3/uL (130-400); WHITE BLOOD COUNT 9.5 10^3/uL (4.3-11.0)
[2022-02-06 04:27] LABS: ALBUMIN 4.2 GM/DL (3.2-4.5); POTASSIUM 3.7 MMOL/L (3.6-5.0)
[2022-02-06 04:28] LABS: PROTHROMBIN TIME PATIENT 13.3 SEC (12.2-14.7)
[2022-02-06 04:29] LABS: CALCIUM 9.2 MG/DL (8.5-10.1)
[2022-02-06 04:30] LABS: TOTAL PROTEIN 8.9 GM/DL (6.4-8.2)
[2022-02-06 04:32] LABS: BILIRUBIN,TOTAL 0.3 MG/DL (0.1-1.0)
[2022-02-06 04:34] LABS: CREATININE SERUM 0.69 MG/DL (0.60-1.30)
[2022-02-06 04:36] LABS: MAGNESIUM 1.9 MG/DL (1.6-2.4)
[2022-02-06 05:25] VITALS: BP 134/73
--- NOTE | 2022-02-06 07:05 | Diagnostic Imaging Report ---
INDICATION: Chest pain COMPARISON: 01/29/2020 TECHNIQUE: Single radiograph chest dated 02/06/2022 FINDINGS: The cardiac silhouette is within normal limits in size. No significant pulmonary vascular congestion. The lungs are clear. No pleural effusion. No pneumothorax. No acute osseous abnormality. IMPRESSION: Stable appearing examination without acute cardiopulmonary abnormality. Dictated by: Dictated on workstation # [id number]
== END 2022-02-06 05:35 | disposition home or self-care (01) ==
LOC: EDUNIT# 03:00 → ER 03:02
DX: R07.89 Other chest pain (principal); E66.9 Obesity, unspecified; Z68.41 Body mass index [BMI] 40.0-44.9, adult
CPT/HCPCS: 36415; 71045; 80053; 83690; 83735; 83874; 84484; 85025; 85610; 85730; 93005; 93041